=== PATIENT | female | born 1950 | race Caucasian/White ===

== ENCOUNTER 2016-12-04 07:37 | Emergency (ER) | payer MEDICARE, OTHER ==
--- NOTE | 2016-12-04 09:17 | ED Physician Documentation ---
PD HPI LOWER EXT INJURY - Stated complaint Stated Complaint: R ANKLE INJ - Chief complaint Chief Complaint: Ext Problem - History obtained from History obtained from: Patient - History of Present Illness PD HPI LOW EXT INJURY LOCATION: Right, Ankle, Foot Type of injury: Fall, Twist Where injury occurred: Home Timing - onset: Last night Timing - duration: Hours Timing - details: Abrupt onset, Still present Improved by: Rest, Ice, Immobilization Worsened by: Moving, Palpating Associated symptoms: Swelling. No: Weakness, Numbness Contributing factors: No: Prior ortho surgery Similar symptoms before: Has not had sx before Recently seen: Not recently seen - Additional information Additional information: 66-year-old female has moved into a new house and yesterday she was in her easy chair when she went to get up out of the chair she twisted her ankle and fell. She has pain in the lateral aspect of the ankle and in the proximal foot laterally. 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 - Present Medications Home Medications: Ambulatory Orders Medication Instructions Recorded Confirmed Spironolactone 0 mg PO DAILY 12/04/16 12/04/16 - Allergies Allergies/Adverse Reactions: Allergies Allergy/AdvReac Type Severity Reaction Status Date / Time No Known Drug Allergies Allergy Verified 12/04/16 07:54 - Social History Does the pt smoke?: No Smoking Status: Never smoker Does the pt drink ETOH?: No Does the pt have substance abuse?: No - Immunizations Immunizations are current?: Yes PD ED PE NORMAL - Vitals Vital signs reviewed: Yes (Hypertensive) - General General: Alert and oriented X 3, No acute distress, Well developed/nourished - HEENT HEENT: Atraumatic, PERRL - Respiratory Respiratory: No respiratory distress - Derm Derm: Normal color, Warm and dry, No rash - Extremities Extremities: Other (There is swelling and point tenderness over the lateral malleolus and over the proximal fifth metatarsal. There is no tenderness to the medial malleolus and the ankle has good range of motion.) - Neuro Neuro: No motor deficit, No sensory deficit - Psych Psych: Normal mood, Normal affect Results - Vitals Vitals: Vital Signs - 24 hr 12/04/16 07:45 Temperature 36.8 C Heart Rate 86 Respiratory 18 Rate Blood Pressure 135/88 H O2 Saturation 98 Oxygen O2 Source Room air - Rads (name of study) Right ankle Radiology: Prelim report reviewed (Impression: 1. Nondisplaced transverse fracture through the distal fibula. Overlying soft tissue swelling. 2. Partially visualized nondisplaced fracture of the proximal fifth metatarsal. 3.Ankle joint effusion. 4. No dislocation.), EMP read indepedently, See rad report Procedures - Splint (location) Right ankle Splint applied by: Tech Type of splint: Fiberglass, Posterior Other: Patient tolerated well, No complications, Neurovascular intact, Good alignment, Crutches provided PD MEDICAL DECISION MAKING - ED course Complexity details: reviewed results, re-evaluated patient, considered differential, d/w patient ED course: 66-year-old female with a slip and fall in her home has fractured her foot and ankle. She is placed into a posterior splint and onto crutches and will follow up with orthopedics. Departure - Departure Disposition: 01 Home, Self Care Clinical Impression: Fracture of distal end of right fibula Qualifiers: Encounter type: initial encounter Fracture type: closed Fracture morphology: unspecified fracture morphology Qualified Code(s): S82.831A - Other fracture of upper and lower end of right fibula, initial encounter for closed fracture Fx metatarsal-closed Qualifiers: Encounter type: initial encounter Metatarsal bone: fifth Fracture alignment: nondisplaced Laterality: right Qualified Code(s): S92.354A - Nondisplaced fracture of fifth metatarsal bone, right foot, initial encounter for closed fracture Condition: Stable Instructions: ED Fx Foot, ED Fx Ankle Lateral Malleolus Follow-Up: Samuel Grayson MD [Primary Care Provider] - [facility] [Provider Group]
--- NOTE | 2016-12-04 09:25 | XRAY Preliminary Report ---
Exam: XR Ankle 3 View RT IMPRESSION: 1. Nondisplaced transverse fracture through the distal fibula. Overlying soft tissue swelling. 2. Partially visualized nondisplaced fracture at the proximal fifth metatarsal. 3. Ankle joint effusion. 4. No dislocation. [facility] SITE ID: [id number]
--- NOTE | 2016-12-04 09:28 | XRAY Report ---
EXAM: RIGHT ANKLE RADIOGRAPHY EXAM DATE: 12/04/2016 09:10 AM. CLINICAL HISTORY: Fall swelling pain . COMPARISON: None. TECHNIQUE: 4 views. FINDINGS: Bones: Nondisplaced transverse fracture through the distal fibula. Old well-corticated fragment adjac ent to the distal tip of the medial malleolus. Nondisplaced fracture proximal fifth metatarsal. Joints: No dislocation. Ankle joint effusion. Soft Tissues: Soft tissue swelling. IMPRESSION: 1. Nondisplaced transverse fracture through the distal fibula. Overlying soft tissue swelling. 2. Partially visualized nondisplaced fracture at the proximal fifth metatarsal. 3. Ankle joint effusion. 4. No dislocation. [facility] Referring Provider Line: [phone] SITE ID: [id number]
[2016-12-04 09:48] VITALS: BP 154/83
== END 2016-12-04 10:11 | disposition home or self-care (01) ==
LOC: ED 07:37
DX: S82.831A Other fracture of upper and lower end of right fibula, initial encounter for closed fracture (principal); W18.30XA Fall on same level, unspecified, initial encounter; X50.1XXA Overexertion from prolonged static or awkward postures, initial encounter; Y93.89 Activity, other specified; Y92.009 Unspecified place in unspecified non-institutional (private) residence as the place of occurrence of the external cause; I10 Essential (primary) hypertension
CPT/HCPCS: 29515; 99283

== ENCOUNTER 2020-04-07 08:00 | Outpatient (CLI) | payer MEDICARE, OTHER ==
--- NOTE | 2020-04-08 09:36 | XRAY Report ---
PROCEDURE: Ankle 3 View RT INDICATIONS: RIGHT ANKLE JOINT PAIN TECHNIQUE: 3 views of the ankle were acquired. COMPARISON: 01/07/2017. FINDINGS: Bones: No fractures or dislocations. There is mild tibiotalar joint degeneration with mild osteophy tosis and subchondral sclerosis. Ankle mortise is normally aligned. No suspicious bony lesions. Soft tissues: There is mild soft tissue swelling over the lateral malleolus. There is a small tibiot alar joint effusion. Achilles tendon appears intact. IMPRESSION: 1. Mild tibiotalar joint degeneration. 2. Small tibiotalar joint effusion. Reviewed by: Claude Thorpe MD on 04/08/2020 9:34 AM PST Approved by: Claude Thorpe MD on 04/08/2020 9:34 AM PST Station ID: [id number]
== END 2020-04-07 23:59 | disposition home or self-care (01) ==
LOC: DI.S 08:00
PROVIDERS: ATTEND Physician Assistant
DX: M19.071 Primary osteoarthritis, right ankle and foot (principal); M25.471 Effusion, right ankle

== ENCOUNTER 2020-09-13 17:08 | Outpatient (CLI) | payer MEDICARE, OTHER | END 2020-09-13 17:09 | disposition home or self-care (01) | LOC: COV 17:08 | PROVIDERS: ATTEND Dermatology MOHS-Micrographic Surgery | DX: Z01.812 Encounter for preprocedural laboratory examination (principal); Z20.822 Contact with and (suspected) exposure to COVID-19 ==

== ENCOUNTER 2021-06-27 08:00 | Outpatient (CLI) | payer MEDICARE, OTHER ==
--- NOTE | 2021-06-28 10:57 | XRAY Report ---
PROCEDURE: Hand 3 View LT INDICATIONS: Left hand contusion TECHNIQUE: 3 views of the hand(s) acquired. COMPARISON: None. FINDINGS: Bones: No fractures or dislocations. No suspicious bony lesions. Soft tissues: No suspicious soft tissue calcifications. IMPRESSION: No fracture or acute finding. Reviewed by: Mahad Paul MD on 06/28/2021 10:55 AM PDT Approved by: Mahad Paul MD on 06/28/2021 10:55 AM PDT Station ID: [id number]
== END 2021-06-27 23:59 | disposition home or self-care (01) ==
LOC: DI.S 08:00
PROVIDERS: ATTEND Emergency Medicine
DX: S60.222A Contusion of left hand, initial encounter (principal)

== ENCOUNTER 2021-06-27 16:16 | Outpatient (CLI) | payer MEDICARE, OTHER ==
--- NOTE | 2021-07-03 15:55 | Mammography Report ---
BILATERAL DIGITAL SCREENING MAMMOGRAM 3D/2D: 06/27/2021 CLINICAL: Routine screening. No prior exams were available for comparison. There are scattered fibroglandular elements in both br easts. There is a 0.6 cm asymmetry in the left breast middle depth lateral region seen on the craniocaudal v iew only. No other significant masses, calcifications, or other findings are seen in either breast. IMPRESSION: INCOMPLETE: NEEDS ADDITIONAL IMAGING EVALUATION The 0.6 cm asymmetry in the left breast is indeterminate. Additional views with possible ultrasound are recommended. This exam was interpreted at Station ID: [id number]. NOTE: For mammograms, a report in lay terms will be sent to the patient. Approximately 15% of breast malignancies will not be visualized mammographically. In the management of a palpable breast mass, a negative mammogram must not discourage biopsy of a clinically suspicious lesion. Electronically Signed By: Miles Díaz M.D. slc/:07/03/2021 12:38:47 ACR BI-RADS Category 0: Incomplete 3340F PARENCHYMAL PATTERN: (A) - The breast(s) demonstrate(s) scattered fibroglandular densities. BI-RADS CATEGORY: (0) - 0 Mammo and [place] [id number] Immediate follow-up LATERALITY: (B)
== END 2021-06-27 16:17 | disposition home or self-care (01) ==
LOC: DI.S 16:16
DX: Z12.31 Encounter for screening mammogram for malignant neoplasm of breast (principal); R92.8 Other abnormal and inconclusive findings on diagnostic imaging of breast

== ENCOUNTER 2023-08-07 16:59 | Outpatient (CLI) | payer MEDICARE, OTHER ==
[2023-08-07 21:43] LABS: BACTERIAL VAGINOSIS DNA NEGATIVE (NEGATIVE); CANDIDA GLABRATA DNA NEGATIVE (NEGATIVE); CANDIDA GROUP DNA NEGATIVE (NEGATIVE); CANDIDA KRUSEI DNA NEGATIVE (NEGATIVE); TRICHOMONAS VAGINALIS DNA NEGATIVE (NEGATIVE)
== END 2023-08-07 17:00 | disposition home or self-care (01) ==
LOC: LAB.WC 16:59
PROVIDERS: ATTEND Obstetrics & Gynecology
DX: R10.2 Pelvic and perineal pain (principal)
CPT/HCPCS: 81514